=== PATIENT | female | born 1965 | race African-American/Black ===

== ENCOUNTER → 2020-03-02 | Outpatient (CLI) | payer OTHER ==
[~2020-03-02] MED LIST: FELO10TA4 PO; GADOTERATE 7.5 MMOL/15ML VIAL. ONE; LISI1TAB37 PO; TRAM100C3 PO
--- NOTE | 2020-03-02 16:36 | KCIC ---
BRAIN WO/W CONTRAST History:Reason: HYPERPROLACTINEMIA / Spl. Instructions: / History: Abnormal labwork at recent well woman exam. Technique: Multiplanar, multi sequential without and with intravenous contrast MR imaging was performed of the brain. Comparison: None Findings: Small T2 hyperintense hypoenhancing lesion within the anterior inferior thyroid measures 3 x 3 mm. Pituitary infundibulum is midline. No evidence of cavernous sinus invasion. No mass effect. Suprasellar cistern or optic chiasm. No acute infarct. No intracranial hemorrhage. No mass effect. No hydrocephalus. Extra-axial spaces are unremarkable. Imaged orbits are unremarkable. Imaged paranasal sinuses and mastoid air cells are clear. Impression: 1. Small hypoenhancing lesion within the anterior pituitary, favor microadenoma. Electronically signed by: Sotero Yuan DO (03/02/2020 4:33 PM) [id number]
== END ==
LOC: KCIC MRI 13:44
PROVIDERS: ATTEND Obstetrics & Gynecology
DX: E22.1 Hyperprolactinemia (principal); G93.89 Other specified disorders of brain
CPT/HCPCS: 70553; A9575

== ENCOUNTER → 2021-02-04 | Outpatient (CLI) | payer OTHER ==
[~2021-02-04] MED LIST changes: +GADOTERATE 7.5 MMOL/15ML VIAL. IVP ONE; -GADOTERATE 7.5 MMOL/15ML VIAL. ONE
--- NOTE | 2021-02-04 17:17 | KCIC ---
MRI of the Brain/Pituitary Gland without and with Contrast 02/04/2021 Clinical History: Pituitary microadenoma. Technique: Unenhanced T1-weighted sagittal and axial and FLAIR, T2-weighted, gradient echo and diffus ion-weighted axial images of the brain were obtained. Thin section T1-weighted sagittal and coronal a nd T2 weighted coronal images through the pituitary gland were obtained. After the intravenous admini stration of 28cc of Clariscan, enhanced T1-weighted axial, sagittal and coronal images of the brain w ere obtained. Additionally thin section T1-weighted sagittal and coronal and dynamic enhanced T1-weig hted coronal images through the pituitary gland were obtained. Findings: Comparison study is dated 03/02/2020. The ventricles and sulci are within normal limits in size and configuration. No area of abnormal sign al intensity is seen involving the brain parenchyma. No abnormal area of parenchymal contrast enhance ment is seen. No extra-axial fluid collection is noted. There is no MRI evidence of acute ischemia/in farction. Images through the pituitary gland demonstrate a rounded area of diminished contrast enhancement invo lving the anterior lobe of the pituitary gland just to left of midline. This measures 3 mm in greates t diameter. It is consistent with a pituitary microadenoma. It is unchanged when compared to the prev ious examination. No extension to involve the suprasellar cistern or cavernous sinus is seen. No elba tional abnormality of the pituitary gland is noted. The paranasal sinuses are essentially clear. Normal flow voids are seen within the major vascular str uctures surrounding the brain parenchyma. Impression: Stable MRI appearance of the 3 mm pituitary microadenoma. No acute parenchymal abnormalit y is seen. Electronically signed by: Pankaj Carballo MD (02/04/2021 5:15 PM) [place] [id number]
== END ==
LOC: KCIC MRI 14:44
PROVIDERS: ATTEND Internal Medicine Endocrinology, Diabetes & Metabolism
DX: D35.2 Benign neoplasm of pituitary gland (principal); E22.9 Hyperfunction of pituitary gland, unspecified
CPT/HCPCS: 70553; A9575